=== PATIENT | male | born 1995 | race Caucasian/White ===

== ENCOUNTER 2019-06-06 07:03 | Emergency (ER) | payer OTHER | END 2019-06-06 07:55 | disposition left against medical advice (07) | LOC: ED 07:03 | DX: Z53.21 Procedure and treatment not carried out due to patient leaving prior to being seen by health care provider (principal) ==

== ENCOUNTER 2019-06-19 16:44 | Emergency (ER) | payer OTHER ==
[~2019-06-19] VITALS: Ht 167.6 cm; Wt 66.5 kg
[2019-06-19 16:48] VITALS: Ht 167.6 cm; Wt 66.5 kg
[2019-06-19 18:11] VITALS: BP 133/82
== END 2019-06-19 18:12 | disposition home or self-care (01) ==
LOC: ED 16:44
DX: B34.9 Viral infection, unspecified (principal); F17.210 Nicotine dependence, cigarettes, uncomplicated
CPT/HCPCS: 99406